=== PATIENT | female | born 1970 | race Caucasian/White ===

== ENCOUNTER 2018-05-09 18:34 | Emergency (ER) | payer OTHER ==
[~2018-05-09] VITALS: Ht 167.6 cm; Wt 82.5 kg
[2018-05-09] MEDS ORDERED: ASPIRIN 81 MG TABLET CHEW PO ONE (19:00)
[2018-05-09] MEDS ORDERED: PLEASE ENTER HEIGHT AND WEIGHT MC SCH (19:00)
[2018-05-09] MEDS ORDERED: SODIUM CHLORIDE FLUSH 10ML SYR IVF ONE (19:00)
[2018-05-09] MEDS ORDERED: ASPIRIN 81 MG TABLET CHEW ONE (19:04)
[2018-05-09 19:07] LABS: BASOPHILS # (AUTO) 0.04 x10^3/uL (0-0.1); BASOPHILS % (AUTO) 1 % (0-1); EOSINOPHILS # (AUTO) 0.17 x10^3/uL (0-0.4); EOSINOPHILS % (AUTO) 2 % (1-7); LYMPHOCYTES # (AUTO) 3.01 x10^3/uL (1-3.4); LYMPHOCYTES % (AUTO) 43 % (22-44); MD NO; MEAN CORPUSCULAR HEMOGLOBIN 27.5 pg (27.0-34.8); MEAN CORPUSCULAR HGB CONC 33.2 g/dL (32.4-35.8); MEAN CORPUSCULAR VOLUME 82.9 fL (80-100); MONOCYTES # (AUTO) 0.63 x10^3/uL (0.2-0.8); MONOCYTES % (AUTO) 9 % (2-9); NEUTROPHILS # (AUTO) 3.23 x10^3/uL (1.8-6.8); NEUTROPHILS % (AUTO) 46 % (42-75); PLATELET COUNT 331 x10^3/uL (130-400); RED BLOOD COUNT 5.05 x10^6/uL (3.82-5.3); RED CELL DISTRIBUTION WIDTH 14.9 % (9.6-15.2)
--- NOTE | 2018-05-09 19:11 | NUR ---
PT. TO ED WITH C/O SUDDEN ONSET LEFT CHEST PRESSURE STARTING AT 1400 TODAY; WAS SENT HERE FROM URGENT CARE. PT. DENIES ANY MEDICAL HX OR DAILY MEDS. DENIES SMOKING. DENIES ANY RECENT INJURY OR STRENUOUS ACTIVITY. DENIES ANY RECENT LONG TRAVEL. PT. HAS FAMILY AT FOR SUPPORT. MEDICATED PER MAY AND MONITORS APPLIED. CALL LIGHT IN REACH. LABS WERE DONE AND CHEST X-RAY COMPLETED.
[2018-05-09 19:17] LABS: ALANINE AMINOTRANSFERASE 32 U/L (12-78); ALBUMIN 3.6 g/dL (3.4-5.0); ANION GAP 6 mmol/L (5-15); CALCIUM 8.4 mg/dL (8.5-10.1); CHLORIDE 111 mmol/L (98-107); CREATININE 0.54 mg/dL (0.55-1.02)
[2018-05-09 19:21] LABS: ALKALINE PHOSPHATASE 86 U/L (45-117); BILIRUBIN,TOTAL 0.6 mg/dL (0.2-1.0); TOTAL PROTEIN 7.3 g/dL (6.4-8.2); TROPONIN I < 0.015 ng/mL (0.000-0.045)
[2018-05-09] MEDS ORDERED: NITROGLYCERIN SINGLE TAB 0.4 MG SL PRN (19:30)
[2018-05-09] MEDS ORDERED: NITROGLYCERIN SINGLE TAB 0.4 MG SL ONE ×2 (19:57→19:58)
--- NOTE | 2018-05-09 20:10 | NUR ---
PT. AMBULATORY TO BR WITH STEADY GAIT. WILL MEDICATE UPON RETURN.
--- NOTE | 2018-05-09 20:22 | NUR ---
PT. MEDICATED PER MAR WITH NITRO. REPORTS PAIN IS NO BETTER; B/P DROPPED; THEREFORE 2ND DOES WILL NOT BE GIVEN AT THIS TIME. ESDRAS SCHAEFFER AWARE OF THIS.
[2018-05-09] MEDS ORDERED: MORPHINE SULFATE 4 MG/ML, 1ML ONE (20:25)
[2018-05-09] MEDS ORDERED: MORPHINE SULFATE 4 MG/ML, 1ML IVPush PRN (20:30)
[2018-05-09] MEDS ORDERED: MAALOX/HYOSCYAMINE/LIDOCAINE 45 ML BTL ONE (20:35)
--- NOTE | 2018-05-09 20:41 | NUR ---
PT. REFUSING GI MEDS. STATES "MY STOMACH DOESN'T HURT, I WANT TO GO HOME". PT. REPORTS HAVING ANXIETY OVER MOTHER PASSING AWAY LAST NIGHT. WILL UPDATE ERP.
[2018-05-09] MEDS ORDERED: MAALOX/HYOSCYAMINE/LIDOCAINE 45 ML BTL PO ONE (21:00)
[2018-05-09] MEDS ORDERED: ONDANSETRON 2MG/ML, 2ML IVPush ONE (21:00)
[2018-05-09 21:13] VITALS: BP 110/57
== END 2018-05-09 21:19 | disposition home or self-care (01) ==
LOC: ED 21:08
DX: R07.89 Other chest pain (principal); F43.0 Acute stress reaction
CPT/HCPCS: 36415; 71045; 80053; 84484; 85025; 93005; 99284

== ENCOUNTER 2020-09-29 17:22 | Emergency (ER) | payer SELFPAY ==
[~2020-09-29] VITALS: Ht 167.6 cm; Wt 82.9 kg
[2020-09-29 18:36] LABS: BASOPHILS % (AUTO) 0 % (0-1); EOSINOPHILS % (AUTO) 0 % (1-7); LYMPHOCYTES % (AUTO) 22 % (22-44); MEAN CORPUSCULAR HEMOGLOBIN 29.2 pg (27.0-34.8); MEAN CORPUSCULAR HGB CONC 33.7 g/dL (32.4-35.8); MEAN PLATELET VOLUME 8.3 fL (7.4-10.4); MONOCYTES % (AUTO) 6 % (2-9); NEUTROPHILS % (AUTO) 72 % (42-75); PLATELET COUNT 296 x10^3/uL (130-400); RED BLOOD COUNT 4.71 x10^6/uL (3.82-5.3); RED CELL DISTRIBUTION WIDTH 14.7 % (9.6-15.2)
[2020-09-29 18:44] LABS: ALBUMIN 3.6 g/dL (3.4-5.0); ANION GAP 5 mmol/L (5-15); CHLORIDE 109 mmol/L (98-107); CREATININE 0.61 mg/dL (0.55-1.02)
[2020-09-29 19:16] LABS: FREE T4 (FREE THYROXINE) 0.85 ng/dL (0.76-1.46)
[2020-09-29 19:19] LABS: MICROSCOPIC NOT IND
[2020-09-29 19:59] VITALS: BP 106/74
== END 2020-09-29 20:02 | disposition home or self-care (01) ==
LOC: ED 20:00
DX: B34.9 Viral infection, unspecified (principal)
CPT/HCPCS: 36415; 80048; 81003; 82040; 84439; 84443; 84481; 85025; 99283